=== PATIENT | female | born 1985 | race African-American/Black ===

== ENCOUNTER 2016-07-12 07:35 | Emergency (ER) | payer MEDICAID, OTHER ==
[~2016-07-12] VITALS: Ht 165.1 cm; Wt 86.2 kg
[~2016-07-12 07:35] MED LIST: DOXYCYCLINE HY100 M2 ORAL; FLAGYL500 MG ORAL; NKM; NORCO 5-325 TA1 EAC1 ORAL; ZOFRAN4 M1 ORAL
[2016-07-12 07:47] VITALS: BP 112/74
[2016-07-12] MEDS ORDERED: MUCINEX D ER 61 EACH PO (08:45)
[2016-07-12] MEDS ORDERED: Albuterol ud Inhalation HHN SCH (08:45)
[2016-07-12] MEDS ORDERED: VENTOLIN HFA18 GM INH (08:45)
[2016-07-12 09:00] VITALS: BP 121/65
[2016-07-12 09:15] VITALS: BP 121/65
--- NOTE | 2016-07-12 09:40 | Emergency Room Report ---
History of Present Illness General Chief Complaint: Upper Respiratory Illness Source: Patient Present Illness HPI 30 YO F with cough productive of phlegm, chest tightness and myalgias for 2 days. Remote history of asthma, doesnt use inhaler regularly. Denies fever/ chills, chest pain, abd pain, headache. Smokes marijuana regularly. Denies ETOH or other drugs. Allergies: Coded Allergies: CEFTRIAXONE (Verified Allergy, Unknown, 05/17/15) Cat Dander (Verified Allergy, Unknown, 05/17/15) Dog Dander (Verified Allergy, Unknown, 05/17/15) SHELLFISH DERIVED (Verified Allergy, Unknown, 05/17/15) Uncoded Allergies: DOG/CATS (Allergy, Unknown, 05/17/15) SHELL FISH (Allergy, Unknown, 05/17/15) Patient History Past Medical History: none Past Surgical History: none Pertinent Family History: none Social History: Reports: drug use, smoking Last Menstrual Period: 07/06/2016 Now: No : 0 Para: 0 Immunizations: UTD Reviewed Nursing Documentation: PMH: Agreed, PSxH: Agreed Nursing Documentation-PMH Past Medical History: No Stated History Hx Cardiac Problems: No Hx Cancer: No Hx Gastrointestinal Problems: No Hx Neurological Problems: No Review of Systems All Other Systems: negative except mentioned in HPI Physical Exam Vital Signs Date Time Temp Pulse Resp B/P Pulse Ox O2 Delivery O2 Flow Rate FiO2 07/12/16 07:43 97.9 81 16 112/74 99 Room Air Sp02 EP Interpretation: reviewed, normal General Appearance: normal inspection, well appearing, no apparent distress, alert, GCS 15, non-toxic, other - Wreaks of marijuana Head: normocephalic, atraumatic Eyes: bilateral eye EOMI, bilateral eye PERRL ENT: normal ENT inspection, hearing grossly normal, normal voice Neck: normal inspection, full range of motion, supple, no bony tend Respiratory: normal inspection, lungs clear, normal breath sounds, no respiratory distress, no retraction, no accessory muscle use, no wheezing, speaking full sentences, other - Faint expiratory wheeze Cardiovascular #1: regular rate, rhythm, no edema Gastrointestinal: normal inspection, normal bowel sounds, non tender, soft, no guarding, no hernia Genitourinary: no CVA tenderness Musculoskeletal: normal inspection, back normal, normal range of motion, Liang' s Sign negative Neurologic: normal inspection, alert, oriented x3, responsive, 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 Slight end exp wheeze. VSS. Afebrile. Unliklely in acute asthma exac I albuterol neb given with improvement Rx Mucinex, Albuterol ventolin Advised PMD followup Return parameters discussed DC home Last Vital Signs Date Time Temp Pulse Resp B/P Pulse Ox O2 Delivery O2 Flow Rate FiO2 07/12/16 09:15 98.0 75 16 121/65 100 Room Air Status: improved Disposition: HOME, SELF-CARE Condition: Improved Scripts Guaifenesin/Pseudoephedrne Hcl (MUCINEX D ER 600-60 MG TABLET) 1 Each Tab.er.12h 1 EACH PO BID for 7 Days, #14 TAB Prov: DAVID HANDLEY M.D. 07/12/16 Albuterol Sulfate (VENTOLIN HFA) 18 Gm Hfa.aer.ad 2 PUFFS INH EVERY 6 HOURS, #18 GM 0 Refills Prov: DAVID HANDLEY M.D. 07/12/16 Patient Instructions: Upper Respiratory Infection, Adult Additional Instructions: - Use albuterol as needed for cough, wheezing, chest tightness - Take mucinex for plegm/congestion - Follow up with your doctor in 2-3 days - STOP SMOKING DAVID HANDLEY M.D. Jul 12, 2016 09:40
== END 2016-07-12 09:15 | disposition home or self-care (01) ==
LOC: EMR 08:02
DX: J20.9 Acute bronchitis, unspecified (principal); F12.90 Cannabis use, unspecified, uncomplicated; J45.909 Unspecified asthma, uncomplicated; Z91.013 Allergy to seafood; Z88.8 Allergy status to other drugs, medicaments and biological substances; Z91.048 Other nonmedicinal substance allergy status
CPT/HCPCS: 94640; 94664; 99284

== ENCOUNTER 2016-11-04 11:15 | Emergency (ER) | payer OTHER ==
[~2016-11-04] VITALS: Ht 165.1 cm; Wt 86.2 kg
[~2016-11-04 11:15] MED LIST changes: +MUCINEX D ER 61 EACH PO; +VENTOLIN HFA18 GM INH
[2016-11-04 11:30] VITALS: BP 119/84
[2016-11-04 12:23] LABS: APPEARANCE,URINE CLEAR; BASOPHILS % (AUTO) 1.3 % (0.0-2.0); EOSINOPHILS % (AUTO) 2.9 % (0.0-3.0); KETONES,URINE NEGATIVE (NEGATIVE); LEUKOCYTE ESTERASE ,URINE 2+ (NEGATIVE); LYMPHOCYTES % (AUTO) 43.4 % (20.0-45.0); MEAN CORPUSCULAR HEMOGLOBIN 31.8 PG (27.0-31.0); MEAN CORPUSCULAR HGB CONC 33.4 G/DL (32.0-36.0); MEAN CORPUSCULAR VOLUME 95 FL (80-99); MEAN PLATELET VOLUME 6.7 FL (6.5-10.1); MONOCYTES % (AUTO) 4.9 % (1.0-10.0); NEUTROPHILS % (AUTO) 47.5 % (45.0-75.0); NITRITE,URINE NEGATIVE (NEGATIVE); PH,URINE 6 (4.5-8.0); PLATELET COUNT 203 K/UL (150-450); PROTEIN,URINE NEGATIVE (NEGATIVE); RED BLOOD COUNT 4.47 M/UL (4.20-5.40); RED CELL DISTRIBUTION WIDTH 12.5 % (11.6-14.8); UROBILINOGEN,URINE NORMAL MG/DL (0.0-1.0)
[2016-11-04 12:39] LABS: BACTERIA,URINE FEW /HPF; RBC,URINE 0-2 /HPF (0 - 2); SQUAMOUS EPITHELIAL CELL,UR FEW /LPF (NONE/OCC)
[2016-11-04 12:46] LABS: ALANINE AMINOTRANSFERASE 17 U/L (3-33); ALBUMIN/GLOBULIN RATIO 1.2 (1.0-2.7); ANION GAP 18 (5-15); ASPARTATE AMINO TRANSFERASE 17 U/L (5-40); CALCIUM 9.2 mg/dL (8.6-10.2); CARBON DIOXIDE 20 mEQ/L (20-30); CHLORIDE 93 mEQ/L (98-107); CREATININE 0.9 mg/dL (0.5-0.9); GLOMERULAR FILTRATION RATE > 60 mL/min (>60); HEMOLYSIS 28; POTASSIUM 4.4 mEQ/L (3.4-4.9); SODIUM 131 mEQ/L (135-145); TOTAL PROTEIN 7.3 g/dL (6.6-8.7)
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
[2016-11-04 14:08] VITALS: BP 119/84
== END 2016-11-04 14:08 | disposition left against medical advice (07) ==
LOC: EMR 12:00
DX: O26.891 Other specified pregnancy related conditions, first trimester (principal); R10.2 Pelvic and perineal pain; Z88.1 Allergy status to other antibiotic agents; Z91.013 Allergy to seafood; J45.909 Unspecified asthma, uncomplicated
CPT/HCPCS: 36415; 76801; 76830; 80053; 81003; 84702; 85025; 86850; 86900; 86901; 96374